=== PATIENT | male | born 1960 | race American Indian/Alaskan Native ===

== ENCOUNTER 2025-01-21 12:59 | Inpatient (IN) | payer MEDICAID ==
[~2025-01-21] VITALS: Ht 175.3 cm; Wt 104.5 kg
[~2025-01-21 12:59] MED LIST: BUSP5TAB3 PO; CLON-527 PO; CYCL-1 PO; DIAZ-546 PO; ESCI20TA PO; HYDR25TA4 PO; LISI40TA20 PO; LORA-512 PO
--- NOTE | 2025-01-21 13:12 | Physician Documentation ---
History of Present Illness Stated Complaint: ABNORMAL LABS Primary Medical Doctor: Dr. Zhao HPI Is a 64-year-old male that presents to the emergency department for evaluation of abnormal labs collected at the urgent care 2 days ago. Patient's is accompanying him today and reports that the urgent care called them this morning to give them lab results that require that they report to the emergency department. Patient reports that his GFR previously was 73 urgent care reports that his GFR is currently 11 and that his creatinine has increased from a normal value to greater than 5 at this time. Patient's also reports that she was told that his calcium was low but they did not provide her with a value. He reports that he his and family members have all been sick over the last couple of weeks everyone else are better he has continued to feel progressively worse and now feels very weak and short of breath. Reports that he becomes more short of breath with exertion. Patient reports diarrhea and nausea but no vomiting. Patient denies chest pain chest pressure or any syncopal episodes at this time. Medication Reconciliation Allergies: Coded Allergies: No Known Allergies (Unverified , 09/11/16) Scheduled Buspirone Hcl* (Buspar*), 1 TABLET PO DAILY, (Reported) Diazepam (Valium), 1 TAB PO TID PRN Escitalopram Oxalate (Lexapro), 1 TABLET PO DAILY, (Reported) Hydrochlorothiazide (Hydrochlorothiazide), 1 TABLET PO DAILY, (Reported) Lisinopril* (Lisinopril*), 0.5 TABLET PO DAILY, (Reported) Scheduled PRN Clonazepam* (Klonopin*), 1 MG PO BID PRN for anxiety, (Reported) Cyclobenzaprine* (Cyclobenzaprine*), 1 TABLET PO Q8H PRN for muscle spasms Loratadine* (Alavert*), 1 TAB PO DAILY PRN for SOB or wheezing, (Reported) Past Medical History Past Medical History: High Cholesterol, Hypertension, Sleep Apnea, Depression Past Surgical History: noncontributory Alcohol Use: None Lives with: Family Lives In: Home Review of Systems ROS As stated above in the HPI, otherwise all systems are reviewed and negative. Physical Exam Physical Exam Reviewed vital signs and except for slight tachycardia all within normal range. Const: Not in acute cardiopulmonary distress, profoundly weak. Head: Atraumatic Eyes: Normal Conjunctiva ENT: Normal External Ears, Nose and Mouth. Dry mucous membrane Neck: Full range of motion. No meningismus Resp: Clear to auscultation bilaterally. Normal work of breathing Cardio: Regular rate and rhythm, no murmurs. Skin well perfused heart rate 96 beats per minute Abd: Soft, non-tender, non-distended. Normal bowel sounds. No rebound or guarding Skin: No petechiae or rashes. Warm and dry Back: No midline or flank tenderness Ext: No cyanosis, or edema Neuro: Awake and alert Psych: Normal Mood and Affect Medical Decision Making Findings ED MD interpretation of EKG done at 13:24 hours shows sinus tachycardia at a rate of 110. Normal axis and normal intervals. PAC present. Normal segments and normal intervals. No ischemic changes. ER Course/Med. Decision Making REVIEW of RECORD(S): Previous medical records here and/or external medical records, such as that provided directly by the patient, by EMS and/or outside medical facilities, if available, were reviewed. COMORBIDITIES borderline diabetes, hypertension, dyslipidemia MDM During the physical examination, the findings suggestive of acute life- threatening condition such as JVD, tracheal deviation, acidotic breathing, noisy stridorous breath sounds, pulses paradoxus, muffled heart sounds, unequal breath sounds, abdominal rigidity and rebound tenderness, focal neurological deficits, cool clammy skin, severe hypotension, severe tachycardia or bradycardia are absent. Patient presenting for abnormal lab results after acute sickness for about 10 days with reduced food and fluid intake . Vital signs reviewed. Patient is hemodynamically stable and does not meet SIRS criteria. Patient appears nontoxic on exam. His CBC showed WBC 7.9 H and H12.8 and 36.8 platelets 305. Sodium 135 potassium 3.5 chloride 101 bicarb 33.5 BUN 68 creatinine 2.64 and glucose 136. Troponin is 31 and proBNP is 546. TREATMENT/DISPOSITION: The patient's presentation is most consistent with prerenal azotemia and JAE. I will like to admit the patient and hydrate him and see how his renal function responding to hydration. DISCLAIMER: Inadvertent spelling and grammatical errors are likely due to EMR/dictation software use and do not reflect on the overall quality of patient care. Note that the electronic time recorded on this note does not necessarily reflect the actual time of the patient encounter. Departure Disposition: ADMITTED INPATIENT Impression: Primary Impression: Prerenal azotemia Additional Impression: Acute kidney injury Condition: Stable Referrals: NO PRIMARY CARE PROVIDER (PCP) Signature Scribe Signature: x Attestation: DEB Tony Jan 21, 2025 13:12 ADAN GONZALEZ MD Jan 21, 2025 15:23
--- NOTE | 2025-01-21 13:27 | ELECTROCARDIOGRAPH REPORT ---
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 Jef Lee Measurements Intervals [place] Rate: 110 P: 33 AR: 133 QRS: 23 QRSD: 100 T: 96 QT: 330 QTc: 447 Interpretive Statements Sinus tachycardia Atrial premature complexes Nonspecific T abnormalities, lateral leads Electronically Signed On 01-21-2025 21:39:[address] Jef Lee Please click the below link to view image of tracing.
[2025-01-21 13:32] LABS: MEAN PLATELET VOLUME 7.7 FL (7.4-10.4); RED CELL DISTRIBUTION WIDTH 14.3 % (11.5-14.5)
--- NOTE | 2025-01-21 13:39 | RADIOLOGY REPORT ---
CHEST RADIOGRAPH Indication: CP Technique: Single frontal view of the chest was obtained Comparison: None FINDINGS: Lines and Tubes: None Lungs: No focal consolidation. Pleura: No effusion. No pneumothorax. Cardiomediastinal contours: Unremarkable Bones: No acute osseous abnormality. IMPRESSION: No acute cardiopulmonary disease.
[2025-01-21 13:54] LABS: CREATININE 2.64 MG/DL (0.60-1.10); PRO BRAIN NATRIURETIC PEPTIDE 546 PG/ML (0-125); TOTAL CARBON DIOXIDE 23.5 MMOL/L (24-32); eCRCL 29 ML/MIN; eGFR 25 ML/MIN
[2025-01-21] MEDS: ringers solution, lacted 1,000 ML IV ONE ×2 (14:19→16:12)
[2025-01-21] MEDS ORDERED: MELA5TAB12 PO (16:43)
[2025-01-21] MEDS ORDERED: FENO134C21 PO (16:43)
[2025-01-21] MEDS ORDERED: LISI10TA27 PO (16:43)
[2025-01-21] MEDS ORDERED: MAGN200T PO (16:43)
[2025-01-21] MEDS ORDERED: HYDR25TA5 PO (16:45)
[2025-01-21] MEDS ORDERED: magnesium hydroxide 30ml (MOM) UD suspension PO PRN (17:35)
[2025-01-21] MEDS ORDERED: potassium Cl 40MEQ/1/2NS 520ml 520 ML IV PRN (17:35)
[2025-01-21] MEDS ORDERED: magnesium sulf-water 2g/50mL 50 ML IV PRN (17:35)
[2025-01-21] MEDS ORDERED: mag hydrox/Alum hydrox/simeth 30ml oral suspension PO PRN (17:35)
[2025-01-21] MEDS ORDERED: potassium Cl 20 mEq SR tablet PO PRN (17:35)
[2025-01-21] MEDS ORDERED: ondansetron/PF 4mg/2ml inj IV PRN (17:35)
[2025-01-21] MEDS ORDERED: magnesium Cl slow-release 64mg tablet PO PRN (17:35)
[2025-01-21] MEDS ORDERED: magnesium sulf-water 4G/100mL 100 ML IV PRN (17:35)
--- NOTE | 2025-01-21 18:21 | RADIOLOGY REPORT ---
INDICATION: JAE TECHNIQUE: Multiple real-time sonographic images of the kidneys and bladder were obtained. COMPARISON: None FINDINGS: RIGHT kidney measures 12.2 cm in length. No hydronephrosis. LEFT kidney measures 12.2 cm in length. No hydronephrosis. Anechoic cyst is seen in the right kidney measuring up to 2.4 cm. No large intraluminal masses are seen in the bladder. Bladder volume measures 361 mL. Bilateral ureteral jets are visualized. IMPRESSION: 1. No hydronephrosis. 2. Right renal cyst.
[2025-01-21] MEDS: normal saline 1000ml 1,000 ML IV SCH (18:25)
--- NOTE | 2025-01-21 18:37 | HISTORY AND PHYSICAL-Residence ---
History & Physical Providers to Resident Creating Document: KENNEDY RANDOLPH, RES ~ History of Present Illness Primary Medical Doctor: Dr. Zhao Reason for Admit\Complaint: Acute kidney injury, dehydration History of Present Illness This is 64 years old male with past medical history of hypertension and familial hypertriglyceridemia who presented to ED after being found to have abnormal renal function tests. Two weeks ago, the patient, patient went on a trip to [place]. Soon after, he developed frequent episode of sweating, fever, generalized weakness, decreased appetite and nausea. he had [id number] ibuprofen and acetaminophen. Despite these symptoms persisted. Over the past several days he also noticed decreased urine output. Because of ongoing fever, he visited his primary care in [facility]. Where routine blood work revealed elevated creatinine, BUN and EGFR of 11. He was referred to ED for further evaluation and manage. Patient has a history of hypertension for which he uses hydrochlorothiazide and lisinopril Allergies: Coded Allergies: No Known Allergies (Unverified , 09/11/16) Home Medications Home Medications Active Reported Hydrochlorothiazide 25 Mg Tab 1 Tab PO HS 30 Days Lisinopril 10 Mg Tablet 1 Tab PO HS Magnesium 200 Mg Tablet 1 Tab PO HS 30 Days Melatonin 5 Mg Tab.rapdis 1 Tab PO HS 30 Days Fenofibrate 134 Mg Capsule 1 Cap PO HS Klonopin* (Clonazepam) 1 Mg Tablet 1 Mg PO BID PRN Past Medical History Past Medical History Hypertension Familial hypertriglyceridemia Past Surgical History Surgical History Comment No significant surgical history Past Social History Social History Comment Primary care physician-[facility] Sales Applications Engineer: Dr. Aby Rizo Occupation: Retired [employer] without assistance but sometime uses cane He drinks 4 beers in a week, non-smoker, no drug use Smoking: Non-Smoker Alcohol Use: None Drug Use: None Lives with: Family Lives In: Home ROS ROS Constitutional: Reports fever, sweating, weakness,,no chills, no dizziness, Eyes: No pain, erythema, discharge, blurring of vision ENT: No sore throat, epistaxis, tinnitus Cardiovascular: No chest pain, No current palpitations, syncope, lower extremity edema, paroxysmal nocturnal dyspnea Respiratory: Report shortness of breath , No cough, hemoptysis Gastrointestinal: Reports nausea, constipation with occasional diarrhea, decreased appetite, no vomiting, no abdominal pain. Genitourinary: Reports increased frequency of urination Integumentary: No change in skin, hair, nails. No swelling, bruising, abrasions Neurologic: patient didn't report any symptoms Psychiatric: No delusions, loss of interest in normal activity, hallucinations, suicidal ideations Endocrine: No fatigue, weakness, polydipsia, polyuria, change in appetite, heat or cold intolerance, sweating, dry skin Hematological: No bleeding, petechiae, Allergies: No asthma or urticaria Exam Vitals: Vital Signs Date Time Temp Pulse Resp B/P (MAP) Pulse Ox O2 Delivery O2 Flow Rate FiO2 01/21/25 18:06 98 16 131/73 (92) 98 0 01/21/25 13:01 99.3 General: General Appearance Awake, alert, oriented No acute distress Appears stated age Skin Warm, dry, intact No rashes or lesions Nailbeds pink, no cyanosis or clubbing Head Normocephalic, atraumatic No tenderness, masses, depressions, or scarring Eyes Conjunctivae clear, sclera non-icteric Strabismus present on right eye Ears External ear and canal: non-tender, no swelling Hearing: Mild impairment noted Nose Mucosa pink and moist Throat Oral mucosa pink and moist Good dentition, tongue symmetrical Pharynx normal, no tonsillar swelling Neck Supple, no adenopathy Trachea midline Thyroid normal Carotid pulse 2+ bilaterally, no bruit No JVD Cardiac No lifts, heaves, thrills Tachycardic/rhythm normal S1/S2 normal, no murmurs/gallops/rubs Respiratory Chest wall symmetric, non-tender Short of breath Lung sounds clear bilaterally Abdomen Soft, symmetric, non-tender No distention, lesions, or scars Bowel sounds normoactive No masses, hepatomegaly, splenomegaly Extremities No trauma, swelling, or deformity Muscle strength 5/5 Pulses palpable Neurological Alert, oriented x3 Normal speech, motor, sensation Reflexes 2+ bilaterally Cranial nerves intact Cerebellar function intact Normal memory and thought process Psychiatric Appropriate mood and affect Good judgment and insight No hallucinations or suicidal ideation Diagnostic Data Last Recorded Lab Results: 01/21/25 1324 01/21/25 1324 Advance Care Planning Advanced Care plannin - 30 Minutes Additional Plan 64 years old male with past medical history hypertension and familial hypertriglyceridemia is currently evaluated for acute kidney injury Acute kidney injury 2/2 Vasomotor Nephropathy Dehydration possibly due to dehydration Heart rate-98 H&H-12.8/36.8, WBC-7.9 BUN-68 creatinine- 2.64 BUN: Creatinine-25.8 Chest x-ray-no acute cardiopulmonary disease Renal ultrasound- No hydronephrosis.Right renal cyst. Given 2 doses of 1000 mL ringer lactate in ED Plan: Started IV normal saline 125 mL/hour Follow-up spot urine sodium, osmolality, creatinine Monitor CBC/CMP Right renal cyst Patient renal ultrasound shows incident right renal cyst Follow-up with outpatient manager etl Hypertension Held home meds hydrochlorothiazide and lisinopril Patient current BP-131/73 Familial hypertriglyceridemia Continue home med after med rec Insomnia Continue home med Clonazepam p.r.n. Melatonin 5 mg Code Status: Full DVT prophylaxis: SCDs Analgesia/Sedation: Tylenol-morphine Line/tube: Peripheral PT: Ordered Prognosis: Guarded Disposition: Patient will be monitored in ortho with 24 hours telemetry and we will continue to monitor his CMP. Kennedy Randolph PGY1-Internal Medicine Resident Date of Service: Jan 21, 2025 Billing Provider: MILLY STEWART MD, SATISH, RES Jan 21, 2025 18:37 MISTY EVANGELISTA, RES Jan 21, 2025 20:21
[2025-01-21 18:49] LABS: CREATININE 2.16 MG/DL (0.60-1.10); TOTAL CARBON DIOXIDE 22.4 MMOL/L (24-32); eCRCL 35 ML/MIN; eGFR 31 ML/MIN
[2025-01-21 18:58] LABS: INFLUENZA TYPE A ANTIGEN RAPID NEGATIVE (Negative); INFLUENZA TYPE B ANTIGEN RAPID NEGATIVE (Negative)
[2025-01-21] MEDS: K and/or MAG REPLACEMENT MC SCH (20:00)
[2025-01-21] MEDS: docusate sod 100mg capsule PO SCH (20:00)
[2025-01-21 20:40] LABS: URINE AMPHETAMINE SCREEN NEGATIVE (Neg); URINE BARBITUATE SCREEN NEGATIVE (Neg); URINE BENZODIAZEPINES SCREEN NEGATIVE (Neg); URINE CANNABINOID SCREEN NEGATIVE (Neg); URINE COCAINE SCREEN NEGATIVE (Neg); URINE METHADONE SCREEN NEGATIVE (Neg); URINE OPIATE SCREEN NEGATIVE (Neg); URINE PHENCYCLIDINE SCREEN NEGATIVE (Neg)
[2025-01-21 20:53] LABS: LEUKOCYTE ESTERASE ,URINE NEGATIVE (Neg); NITRITES, URINE NEGATIVE (Neg); OCCULT BLOOD,URINE TRACE-INTACT (Neg)
[2025-01-21 21:04] LABS: UA COLLECTION TYPE URINAL
[2025-01-21 21:12] LABS: SQUAMOUS EPITHELIAL CELL,UR NONE SEEN /LPF (FEW)
[2025-01-21] MEDS: potassium Cl 20 mEq SR tablet PO PRN (21:54)
[2025-01-21 22:35] VITALS: BP 164/94; PULSE 107; RESP 22; TEMP 99.3; O2SAT 98
[2025-01-21 23:23] LABS: OSMOLALITY UA 399.0 MOSM/K (50-1400)
[2025-01-21 23:27] LABS: CREATININE,URINE RANDOM 43.0 MG/DL; TOTAL PROTEIN,URINE RANDOM 9.3 MG/DL
[2025-01-22 05:05] LABS: MEAN PLATELET VOLUME 7.6 FL (7.4-10.4); RED CELL DISTRIBUTION WIDTH 13.8 % (11.5-14.5)
[2025-01-22 05:21] LABS: CREATININE 1.79 MG/DL (0.60-1.10); TOTAL CARBON DIOXIDE 24.3 MMOL/L (24-32); eCRCL 42 ML/MIN; eGFR 39 ML/MIN
[2025-01-22 06:00] VITALS: BP 147/85; PULSE 95; RESP 14; TEMP 98.5; O2SAT 97
[2025-01-22 07:47] LABS: BANDS% (MANUAL) 2.0 % (0-10); BASOPHILS % (MANUAL) 1.0 % (0-1); EOSINOPHILS % (MANUAL) 3.0 % (0-6); LYMPHOCYTES % (MANUAL) 12.0 % (21-51); MONOCYTES % (MANUAL) 11.0 % (2-12); NEUTROPHILS % (MANUAL) 71.0 % (42-75)
[2025-01-22 07:48] LABS: PLATELET ESTIMATE NORMAL
[2025-01-22 10:00] VITALS: BP 144/85; PULSE 90; RESP 18; TEMP 97.2; O2SAT 97
[2025-01-22 14:31] LABS: CHOL/HDL RATIO 5.4 (0.00-4.99); LDL CHOLESTEROL 87 MG/DL (50-100)
[2025-01-22 18:00] VITALS: BP 154/105; PULSE 101; RESP 16; TEMP 99.6; O2SAT 98
[2025-01-22] MEDS ORDERED: morphine 4 MG/ML inj SYRINge IV PRN (18:30)
[2025-01-22 18:45] VITALS: BP 147/57
--- NOTE | 2025-01-22 19:04 | PROGRESS NOTE- Residence ---
Progress Note - Resident Providers to CC Resident Creating Document: RON WINCHESTER RES ~ Antibiotic Timeout Antibiotic Ordered?: No Subjective Patient was examined at the bedside and reports improvement in his tiredness Objective Vital Signs Date Time Temp Pulse Resp B/P (MAP) Pulse Ox O2 Delivery O2 Flow Rate FiO2 01/22/25 17:26 101 01/22/25 10:00 97.2 18 144/85 (104) 97 Room Air 01/22/25 08:00 0.0 Result Diagram: 01/22/2543001/22/25 043 General Appearance: Awake, alert, oriented, No acute distress ,Appears stated age Skin: Warm, dry, intact, No rashes or lesions, Nailbeds pink, no cyanosis or clubbing Head: Normocephalic, atraumatic,No tenderness, masses, depressions, or scarring Eyes: Conjunctivae clear, sclera non-icteric,Strabismus present on right eye Ears:External ear and canal: non-tender, no swelling Hearing: Mild impairment noted Nose:Mucosa pink and moist Throat: Oral mucosa pink and moist, Good dentition, tongue symmetrical,Pharynx normal, no tonsillar swelling Neck: Supple, no adenopathy, Trachea midline, Thyroid normal, Carotid pulse 2+ bilaterally, no bruit, No JVD Cardiac:No lifts, heaves, thrills, Tachycardic/rhythm normal,S1/S2 normal, no murmurs/gallops/rubs RespiratoryChest wall symmetric, non-tender,Short of breath,Lung sounds clear bilaterally Abdomen:Soft, symmetric, non-tender,No distention, lesions, or scars,Bowel sounds normoactive,No masses, hepatomegaly, splenomegaly Extremities:No trauma, swelling, or deformity, Muscle strength 5/5, Pulses palpable Neurological: Alert, oriented x3, Normal speech, motor, sensation, Reflexes 2+ bilaterally,Cranial nerves intact,Cerebellar function intact,Normal memory and thought process Psychiatric:Appropriate mood and affect,No hallucinations or suicidal ideation Advance Care Planning Advanced Care plannin - 30 Minutes Assessment Assessment 64 years old male with past medical history of hypertension and familial hypertriglyceridemia he is currently evaluated for acute kidney injury Plan Plan Acute kidney injury 2/2 renal tubular stasis Sodium-140 Creatinine-1.79, BUN 43, EGFR 39, BUN/creatinine-39 FENA-2.3% Continue normal saline 125 mL/hours Continue monitoring CMP Hypertension Held home meds hydrochlorothiazide and lisinopril Blood pressure-144/85 mmHg Started amlodipine 10 mg p.o. daily Hydralazine 50 mg p.o. t.i.d. Follow up with echocardiogram Familial hypertriglyceridemia LDL-80s, HDL-25, triglyceride-72 Continue home med fenofibrate 45 mg p.o. HS Hypertensive heart disease with out heart failure Echo shows: LV is upper limit normal with mild concentric hypertrophy. Overall systolic function appears normal. LVEF is 65%. RV appears mildly dilated with normal contractility. Left atrium is mildly dilated. Trileaflet AV appears sclerotic without stenosis. No insufficiency. MV is thickened with mild annular calcification and no stenosis. Trace mitral regurgitation. The tricuspid valve is normal in structure. Trace tricuspid regurgitation. The pulmonary valve is normal in structure. Trace pulmonic insufficiency. There is no pericardial effusion. -Patient Need outpatient followup with PCP and project management specialist Right renal cyst Patient renal ultrasound shows incident right renal cyst Follow-up with out patient systems designer Insomnia Continue home med Clonazepam p.r.n. Melatonin 6 mg Code Status: Full DVT prophylaxis: SCDs Analgesia/Sedation: Tylenol-morphine Line/tube: Peripheral PT: Ordered Prognosis: Guarded Ron Winchester PGY1-Internal Medicine Resident Date of Service: Jan 22, 2025 Billing Provider: RON WINCHESTER, RON NANCE, KIRSTEN Jan 22, 2025 19:04
[2025-01-22 19:10] VITALS: RESP 16; O2SAT 98
--- NOTE | 2025-01-22 19:55 | CARDIOLOGY REPORT ---
APPROVED REPORT EXAM: Comprehensive 2D, Doppler, and color-flow Echocardiogram. Patient Location: 402 Blood Pressure: 147/85 mmHg Heart Rate: 103 bpm Rhythm: Sinus Tachycardia Indications Hypertension Obstuctive sleep apnea Supplier Quality Specialist is Mindy Rizo MD No previous echo 2D Dimensions LA Diam 4.1 cm IVSd 1.2 (0.7-1.1cm) LVDd 5.5 cm PWd 1.2 (0.7-1.1cm) IVSs 1.7 (0.8-1.2cm) LVDs 3.8 (2.5-4.0cm) Aortic Root(2D) 3.5 cm PWs 1.6 (0.8-1.2cm) LVOT Diameter 1.98 (1.8-2.4cm) LVEF(%) 58.2 (>50%) IVC 19.76 mm FS (%) 31.1 % SV 84.6 ml CO 8.7 L/min M-Mode Dimensions MV EPSS 1.3 (<0.5cm) Aortic Valve AoV Peak Inderjit. 187.4 cm/s AoV VTI 33.6 cm AO Peak GR. 14.0 mmHg AO Mean GR. 8 mmHg LVOT VTI 30.01 cm LVOT Peak Inderjit. 149.4 cm/s RACQUEL(VTI)/BSA 2.74 cm2/m2 RACQUEL (VTI) 2.74 cm2 Mitral Valve MV E Velocity 81.4 cm/s MV Peak Gr. 4 mmHg MV DECEL TIME 212 ms MV A Velocity 110.1 cm/s MV PHT 60 ms E/A Ratio 0.7 MVA (PHT) 3.67 cm2 MV VMax 96.9 cm/s TDI Medial E' P. V 10.32 cm/s E/Medial E' 7.9 Tricuspid Valve TR P. Velocity 202 cm/s RAP ESTIMATE 10 mmHg TR Peak Gr. 16 mmHg RVSP 26 mmHg Pulmonary Vein S1 Velocity 41.2 cm/s D2 Velocity 29.2 cm/s PVa Velocity 44.4 cm/s PVa Duration 100 msec LEFT VENTRICLE LV is upper limit normal with mild concentric hypertrophy. Overall systolic function appears normal. LVEF is 65%. RIGHT VENTRICLE RV appears mildly dilated with normal contractility. ATRIA Left atrium is mildly dilated. AORTIC VALVE Trileaflet AV appears sclerotic without stenosis. No insufficiency. MITRAL VALVE MV is thickened with mild annular calcification and no stenosis. Trace mitral regurgitation. TRICUSPID VALVE The tricuspid valve is normal in structure. Trace tricuspid regurgitation. PULMONIC VALVE The pulmonary valve is normal in structure. Trace pulmonic insufficiency. GREAT VESSELS The aortic root is normal in size. The IVC is normal in size and collapses >50% with inspiration. PERICARDIUM There is no pericardial effusion. Other Information Study Quality: Adequate Conclusion LV is upper limit normal with mild concentric hypertrophy. Overall systolic function appears normal. LVEF is 65%. RV appears mildly dilated with normal contractility. Left atrium is mildly dilated. Trileaflet AV appears sclerotic without stenosis. No insufficiency. MV is thickened with mild annular calcification and no stenosis. Trace mitral regurgitation. The tricuspid valve is normal in structure. Trace tricuspid regurgitation. The pulmonary valve is normal in structure. Trace pulmonic insufficiency. There is no pericardial effusion.
[2025-01-22 21:59] VITALS: BP 135/90; PULSE 104; RESP 19; TEMP 98.3; O2SAT 99
[2025-01-23 06:00] VITALS: BP 135/66; PULSE 96; RESP 22; TEMP 99.3; O2SAT 97
[2025-01-23 06:26] LABS: MEAN PLATELET VOLUME 7.6 FL (7.4-10.4); RED CELL DISTRIBUTION WIDTH 14.1 % (11.5-14.5)
[2025-01-23 06:28] LABS: CREATININE 1.33 MG/DL (0.60-1.10); TOTAL CARBON DIOXIDE 22.8 MMOL/L (24-32); eCRCL 57 ML/MIN; eGFR 54 ML/MIN
[2025-01-23] MEDS ORDERED: HYDR25TA90 PO (09:14)
[2025-01-23] MEDS ORDERED: NOR5T PO (09:14)
[2025-01-23 09:49] VITALS: BP 131/76; PULSE 105; RESP 16; TEMP 97.7; O2SAT 95
--- NOTE | 2025-01-23 20:25 | DISCHARGE SUMMARY-Residence ---
Discharge Summary Providers to CC Resident Creating Document: CARLITOAbyKENNEDY, RES ~ Discharge Summary Admission Diagnosis: Acute Kidney Injury, Dehydration Admission Diagnosis Comment: Acute kidney injury Hospital Course DATE OF ADMISSION: 01/21/2025 DATE OF DISCHARGE: 01/23/2025 Discharge Diagnosis\Comment: Acute kidney injury 2/2 renal tubular stasis Right Renal cyst Familial hypertriglyceridemia Hypertension poorly control Hypertensive heart disease without heart failure ejection fraction of 65 % Insomnia Operations\Procedures: None Consultants: None Complications: None Condition on DC: Stable New Medications: Amlodipine Besylate (Amlodipine Besylate) 5 Mg Tablet 10 MG PO DAILY for 30 Days, #30 TAB Hydralazine Hcl* (Apresoline*) 25 Mg Tablet 50 MG PO Q8H for 30 Days, #90 TAB Continued Medications: Clonazepam* (Klonopin*) 1 Mg Tablet 1 MG PO BID PRN for anxiety, TAB Fenofibrate,Micronized (Fenofibrate) 134 Mg Capsule 1 CAP PO HS Magnesium (Magnesium) 200 Mg Tablet 1 TAB PO HS for 30 Days, #30 TAB 0 Refills Melatonin (Melatonin) 5 Mg Tab.rapdis 1 TAB PO HS for sleep for 30 Days, #30 TAB 0 Refills Discontinued Medications: Hydrochlorothiazide (Hydrochlorothiazide) 25 Mg Tab 1 TAB PO HS for 30 Days, #30 TAB 0 Refills Lisinopril (Lisinopril) 10 Mg Tablet 1 TAB PO HS Discharge Summary: History of Present Illness This is 64 years old male with past medical history of hypertension and familial hypertriglyceridemia who presented to ED after being found to have abnormal renal function tests. Two weeks ago, the patient, patient went on a trip to [place]. Soon after, he developed frequent episode of sweating, fever, generalized weakness, decreased appetite and nausea. he had [id number] ibuprofen and acetaminophen. Despite these symptoms persisted. Over the past several days he also noticed decreased urine output. Because of ongoing fever, he visited his primary care in [facility]. Where routine blood work revealed elevated crea tinine, BUN and EGFR of 11. He was referred to ED for further evaluation and manage. Patient has a history of hypertension for which he uses hydrochlorothiazide and lisinopril Hospital course 64 years old male with past medical history of hypertension and familial hypertriglyceridemia presented to ED after being found out to have abnormal renal function test. In the hospital we held his home medical for blood pressure and we did renal ultrasound which shows incidental renal cyst with no hydronephrosis and his creatinine is 2.64 at the time of admission and he was given 2 doses of 1000 mL ringer lactate in ED and in-hospital we started him on normal saline 125 mL/hour. Next today his creatinine showed improvement and he continue normal saline at the same rate and switch his antihypertensive medication to amlodipine 10 mg p.o. daily and hydralazine 50 mg p.o. b.i.d. we continued fenofibrate for his hypertriglyceridemia. Echocardiogram showed left ventricular ejection fraction of 65 %. On the day of discharge patient creatinine came down to 1.33 and vitals are stable with new hypertensive medications and patient recovered sooner than expected and fit for discharge Physical examination General Appearance: Awake, alert, oriented, No acute distress ,Appears stated age Skin: Warm, dry, intact, No rashes or lesions, Nailbeds pink, no cyanosis or clubbing Head: Normocephalic, atraumatic,No tenderness, masses, depressions, or scarring Eyes: Conjunctivae clear, sclera non-icteric,Strabismus present on right eye Ears:External ear and canal: non-tender, no swelling Hearing: Mild impairment n oted Nose:Mucosa pink and moist Throat: Oral mucosa pink and moist, Good dentition, tongue symmetrical,Pharynx normal, no tonsillar swelling Neck: Supple, no adenopathy, Trachea midline, Thyroid normal, Carotid pulse 2+ bilaterally, no bruit, No JVD Cardiac:No lifts, heaves, thrills, Tachycardic/rhythm normal,S1/S2 normal, no murmurs/gallops/rubs RespiratoryChest wall symmetric, non-tender,Short of breath,Lung sounds clear bilaterally Abdomen:Soft, symmetric, non-tender,No distention, lesions, or scars,Bowel sounds normoactive,No masses, hepatomegaly, splenomegaly Extremities:No trauma, swelling, or deformity, Muscle strength 5/5, Pulses palpable Neurological: Alert, oriented x3, Normal speech, motor, sensation, Reflexes 2+ bilaterally,Cranial nerves intact,Cerebellar function intact,Normal memory and thought process Psychiatric:Appropriate mood and affect,No hallucinations or suicidal ideation Vital Signs Date Time Temp Pulse Resp B/P (MAP) Pulse Ox O2 Delivery O2 Flow Rate FiO2 01/23/25 09:49 97.7 105 16 131/76 (94) 95 Room Air 01/23/25 08:00 0.0 Laboratory Tests Test 01/21/25 20:24 01/22/25 04:31 01/23/25 04:39 Urine Specimen Description Urinal Urine Color Yellow Urine Clarity Clear Urine pH 6.0 Urine Specific [place] 1.010 Urine Protein Negative mg/dl Urine Glucose (UA) Negative mg/dl Urine Ketones Negative mg/dl Urine Occult Blood Trace-intact Urine Nitrite Negative Urine Bilirubin Negative Urine Urobilinogen 0.2 E.U/dL Urine Leukocyte Esterase Negative Urine RBC 0-2 /HPF Urine WBC 0-4 /HPF Urine Squamous Epithelial Cells None seen /LPF Urine Bacteria Few /HPF Urine Culture Indicated Not ind Volume Urine Centrifuged 10 ml Urine Eosinophils No eos /HPF Urine Osmolality 399 MOSM/K Urine Random Creatinine 43.0 MG/DL Urine Random Total Protein 9.3 MG/DL Urine Random Sodium 77 MEQ/L Urine Random Potassium 17 MEQ/L Urine Comment Urine Opiates Screen Negative Urine Methadone Screen Negative Urine Fentanyl Screen Negative Urine Barbiturates Screen Negative Urine Phencyclidine Screen Negative Urine Amphetamines Screen Negative Urine Benzodiazepines Screen Negative Urine Cocaine Screen Negative Urine Cannabinoids Screen Negative Drug Screen Comment White Blood Count 7.1 X10'3 8.3 X10'3 Red Blood Count 3.79 X10'6 3.69 X10'6 Hemoglobin 11.1 g/dl 10.9 g/dl Hematocrit 31.6 % 31.5 % Mean Corpuscular Volume 83.4 FL 85.5 FL Mean Corpuscular Hemoglobin 29.3 PG 29.7 PG Mean Corpuscular Hemoglobin Concent 35.2 g/dL 34.7 g/dL Red Cell Distribution Width 13.8 % 14.1 % Platelet Count 265 X10'3 322 X10'3 Mean Platelet Volume 7.6 FL 7.6 FL Neutrophils (%) (Auto) 67.0 % 68.8 % Lymphocytes (%) (Auto) 13.3 % 13.7 % Monocytes (%) (Auto) 16.5 % 13.8 % Eosinophils (%) (Auto) 2.0 % 2.5 % Basophils (%) (Auto) 1.2 % 1.2 % Neutrophils # (Auto) 4.8 X10'3 5.7 X10'3 Lymphocytes # (Auto) 1.0 X10'3 1.1 X10'3 Monocytes # (Auto) 1.2 X10'3 1.1 X10'3 Eosinophils # (Auto) 0.1 X10'3 0.2 X10'3 Basophils # (Auto) 0.1 X10'3 0.1 X10'3 CBC Comment Differential Total Cells Counted 100 Neutrophils % (Manual) 71.0 % Band Neutrophils % 2.0 % Lymphocytes % (Manual) 12.0 % Monocytes % (Manual) 11.0 % Eosinophils % (Manual) 3.0 % Basophils % (Manual) 1.0 % Platelet Estimate Normal Red Blood Cell Morphology Normal Basophilic Stippling Sodium Level 140 MMOL/L 141 MMOL/L Potassium Level 3.7 MMOL/L 4.0 MMOL/L Chloride Level 108 MMOL/L 109 MMOL/L Carbon Dioxide Level 24.3 MMOL/L 22.8 MMOL/L Anion Gap 8 9 Blood Urea Nitrogen 43 MG/DL 25 MG/DL Creatinine 1.79 MG/DL 1.33 MG/DL Estimated GFR/1.73 m2 39 ML/MIN 54 ML/MIN BUN/Creatinine Ratio 24.0 18.8 Glucose Level 128 MG/DL 116 MG/DL Hemoglobin A1c 5.9 % Calcium Level 8.4 MG/DL 8.2 MG/DL Total Bilirubin 0.6 MG/DL 0.7 MG/DL Aspartate Amino Transf (AST/SGOT) 23 U/L 21 U/L Alanine Aminotransferase (ALT/SGPT) 39 U/L 34 U/L Alkaline Phosphatase 33 IU/L 32 IU/L Total Protein 6.2 G/DL 6.3 G/DL Albumin 2.8 G/DL 2.7 G/DL Globulin 3.4 G/DL 3.6 G/DL Albumin/Globulin Ratio 0.8 0.8 Triglycerides Level 72 MG/DL Cholesterol Level 135 MG/DL LDL Cholesterol 87 MG/DL HDL Cholesterol 25 MG/DL Cholesterol/HDL Ratio 5.4 Thyroid Stimulating Hormone (TSH) 1.89 ulU/ml Chemistry Comments Imaging at hospital Renal ultrasound-No hydronephrosis. Right renal cyst. Chest x-ray-No acute cardiopulmonary disease. Echocardiogram- LV is upper limit normal with mild concentric hypertrophy. Overall systolic function appears normal. LVEF is 65%.RV appears mildly dilated with normal contractility. Left atrium is mildly dilated. Trileaflet AV appears sclerotic without stenosis. No insufficiency. MV is thickened with mild annular calcification and no stenosis. Trace mitral regurgitation. The tricuspid valve is normal in structure. Trace tricuspid regurgitation. The pulmonary valve is normal in structure. Trace pulmonic insufficiency. Discharge recommendation: Follow up with your PCP in a week with repeat blood work to monitor your creatinine levels.We have stopped your previous blood pressure medications lisinopril and hydrochlorothiazide NS started on new blood pressure medications amlodipine and hydralazine. Take them as prescribed.Return to the ED if you have decreased urine output or dysuria.Advised ambulatory blood pressure monitoring at home. Hydrate yourself with enough fluids. *Problems/Diagnosis: (1) Renal cyst, right (2) Poorly-controlled hypertension (3) Hypertriglyceridemia (4) Insomnia (5) Acute kidney injury Status: Acute Total Time Spent on D/C: Up to 30 Minutes Date of Service: Jan 23, 2025 Billing Provider: MILLY STEWART MD, SATISH, RES Jan 23, 2025 20:23
== END 2025-01-23 14:16 | disposition home or self-care (01) | DRG 469 ==
LOC: ER 13:00 → ED HOLD 17:21 → ORTHO 4S 22:16
PROVIDERS: ADMIT Family Medicine; ATTEND Family Medicine
DX: N17.0 Acute kidney failure with tubular necrosis (principal); E78.00 Pure hypercholesterolemia, unspecified; F32.A Depression, unspecified; G47.30 Sleep apnea, unspecified; E86.0 Dehydration; N28.1 Cyst of kidney, acquired; Z20.822 Contact with and (suspected) exposure to COVID-19; E78.1 Pure hyperglyceridemia; I11.9 Hypertensive heart disease without heart failure; I08.1 Rheumatic disorders of both mitral and tricuspid valves; G47.00 Insomnia, unspecified; Z79.899 Other long term (current) drug therapy
CPT/HCPCS: 36415; 71045; 76770; 80048; 80053; 80061; 80305; 81001; 82570; 83036; 83605; 83880; 83930; 83935; 84133; 84156; 84300; 84443; 84484; 85007; 85025; 87081; 87207; 87804; 87811; 93005; 93306; 96360; 99285; G0378; J7030; J7120